=== PATIENT | female | born 1980 | race Caucasian/White ===

== ENCOUNTER 2018-08-08 06:14 | Day surgery (SDC) | payer OTHER ==
[2018-08-08] MEDS: BUPIVACAINE 0.25% (MPF) 30 ML INJ INJ
[2018-08-08 07:11] LABS: ADD MAN DIFF? NO
[2018-08-08 07:15] LABS: BASOPHILS % 0.6 % (0.0-2.0); EOSINOPHILS # 0.2 10^3/ul (0.0-0.5); EOSINOPHILS % 3.6 % (0.0-7.0); HEMATOCRIT 42.7 % (37.0-47.0); HEMOGLOBIN 14.3 g/dl (12.0-16.0); LYMPHOCYTES # 2.4 10^3/ul (0.8-2.9); LYMPHOCYTES % 45.4 % (15.0-51.0); MEAN CORPUSCULAR HEMOGLOBIN 30.2 pg (29.0-33.0); MEAN CORPUSCULAR HGB CONC 33.5 g/dl (32.0-37.0); MEAN CORPUSCULAR VOLUME 90.3 fl (82.0-101.0); MEAN PLATELET VOLUME 10.8 fl (7.4-10.4); MONOCYTE # 0.5 10^3/ul (0.3-0.9); MONOCYTES % 10.1 % (0.0-11.0); NEUTROPHIL # 2.1 10^3/ul (1.6-7.5); NEUTROPHILS % 40.1 % (39.0-77.0); PLATELET COUNT 235 10^3/UL (140-415); RED BLOOD COUNT 4.73 10^6/ul (4.20-5.40); RED CELL DISTRIBUTION WIDTH 13.1 % (11.5-14.5)
[2018-08-08 07:15] LABS: WHITE BLOOD COUNT 5.2 10^3/ul (4.8-10.8)
[2018-08-08 07:33] LABS: INR 0.91; PROTIME 12.3 Sec (11.9-14.9)
[2018-08-08 08:25] LABS: ALANINE AMINOTRANSFERASE 32 IU/L (13-69); ALBUMIN 4.1 g/dl (3.3-4.9); ALBUMIN/GLOBULIN RATIO 1.24; ALKALINE PHOSPHATASE 57 IU/L (42-121); ANION GAP 12 (8-16); ASPARTATE AMINO TRANSFERASE 34 IU/L (15-46); BILIRUBIN,INDIRECT 0.3 mg/dl (0-1.1); BILIRUBIN,TOTAL 0.3 mg/dl (0.2-1.3); BLOOD UREA NITROGEN 11 mg/dl (7-20); CALCIUM 9.4 mg/dl (8.4-10.2); CARBON DIOXIDE 27 mmol/L (21-31); CHLORIDE 108 mmol/L (97-110); CREATININE 0.56 mg/dl (0.44-1.00); GLUCOSE 91 mg/dl (70-220); POTASSIUM 4.2 mmol/L (3.5-5.1); SODIUM 143 mmol/L (135-144); TOTAL PROTEIN 7.4 g/dl (6.1-8.1)
[2018-08-08] MEDS ORDERED: BUPIVACAINE 0.25% (MPF) 30 ML INJ (08:28)
[2018-08-08] MEDS ORDERED: DIPHENHYDRAMINE 50 MG INJ IV (09:00)
[2018-08-08] MEDS ORDERED: MIDAZOLAM 1 MG/ML 2 ML INJ IV (09:00)
[2018-08-08] MEDS ORDERED: MEPERIDINE 25 MG INJ IV (09:00)
[2018-08-08] MEDS ORDERED: SOD CHLORIDE 0.9% 1,000 ML IV (09:00)
[2018-08-08] MEDS ORDERED: FENTAnyl 50 MCG/ML VIAL IV ×2 (09:00)
[2018-08-08] MEDS ORDERED: CEFAZOLIN 2 GM/50 ML (PMX) 50 ML IVPB (09:00)
[2018-08-08] MEDS ORDERED: HYDROmorphONE 1 MG/5 ML IV SYRINGE IV ×2 (09:00)
[2018-08-08] MEDS ORDERED: METOCLOPRAMIDE 10 MG INJ IV (09:00)
[2018-08-08] MEDS ORDERED: OXYCODONE/ACETAMINOPHEN (5/325) TAB PO ×2 (09:00)
[2018-08-08] MEDS ORDERED: ONDANSETRON 4 MG INJ IV (09:00)
[2018-08-08] MEDS ORDERED: PROPOFOL 20 ML (09:02)
[2018-08-08] MEDS ORDERED: LIDOCAINE 2% (SDV) 5 ML INJ (09:02)
[2018-08-08] MEDS ORDERED: SUCCINYLCHOLINE CHLORIDE 100 MG/5 ML SYG IV (09:02)
[2018-08-08] MEDS ORDERED: ROCURONIUM 50 MG INJ (09:02)
[2018-08-08] MEDS ORDERED: GLYCOPYRROLATE 0.4 MG INJ ×2 (09:02→09:38)
[2018-08-08] MEDS ORDERED: NEOSTIGMINE 3 MG/3 ML SYRINGE ×2 (09:02→09:38)
[2018-08-08] MEDS ORDERED: MEPERIDINE /PF (100 MG/2 ML) AMPULE (09:04)
[2018-08-08] MEDS ORDERED: ONDANSETRON 4 MG INJ (09:04)
[2018-08-08] MEDS ORDERED: CEFAZOLIN 1 GM INJ (09:04)
[2018-08-08] MEDS ORDERED: METOCLOPRAMIDE 10 MG INJ (09:05)
[2018-08-08] MEDS: HYDROmorphONE 1 MG/5 ML IV SYRINGE IV (10:23)
[2018-08-08] MEDS: FENTAnyl 50 MCG/ML VIAL IV (10:24)
[2018-08-08] MEDS: HYDROCODONE/APAP (5/325) TAB PO (10:48)
== END 2018-08-08 12:00 | disposition home or self-care (01) ==
LOC: SDS 06:14
DX: K80.10 Calculus of gallbladder with chronic cholecystitis without obstruction (principal)
CPT/HCPCS: 47562; 71045; 80053; 85025; 85610; 85730; 88304; 93005